=== PATIENT | female | born 1970 | race African-American/Black ===

== ENCOUNTER → 2018-03-03 | Outpatient (CLI) | payer OTHER ==
[2013-12-16 15:45] VITALS: BP 119/67
[~2018-03-03] MED LIST: HYDR12.58 PO; LISI10TA2 PO; OMEP40CA5 PO; OXYC10TA PO; URSO300C26 PO
--- NOTE | 2018-03-03 15:01 | KCIC ---
MRI Cervical Spine Without Contrast History: Cervical radiculopathy, neck pain, stiffness, crepitus, pain into the shoulders and into the arms for 2 years Technique: Multiplanar, multi sequential noncontrast MR imaging was performed of the cervical spine. Comparison: None Findings: There is somewhat decreased [id number] ratio as anterior neck coil could not be utilized, also mild motion. Cervical cord caliber is within normal limits without focal signal abnormality. Cervical vertebral body stature is overall preserved. AP alignment is within normal limits. There is no significant abnormality of the cervical medullary junction. There is no significant marrow edema. There is mild degenerative disc disease at C5-6, mild disc desiccation at other levels. C2-C3: Neural foramina and spinal canal are adequate. C3-C4: Neural foramina and spinal canal are adequate. There is facet degenerative change. There is negligible disc osteophyte complex and bulge. There is very mild left uncovertebral degenerative change. C4-C5: There is disc osteophyte complex and shallow posterior central and left paracentral protrusion, central canal borderline about 10 mm. There is bilateral facet degenerative change greater on the left. Neural foramina are adequate. C5-C6: There is disc osteophyte complex and bulge more eccentric to the left lateral recess. Central canal is narrowed to about 9 to 10 mm also with mild left lateral recess stenosis. There is left uncovertebral degenerative change. There is facet degenerative change greater on the left. There is moderate to severe narrowing of the left neural foramen. Right neural foramen is adequate. C6-C7: There is very shallow posterior protrusion greater in the right paracentral region. Central canal is borderline about 10 mm. Neural foramina are adequate. C7-T1: Spinal canal and the neural foramina are adequate. Impression: 1. There is mild spinal stenosis C5-6. There is moderate to severe narrowing of the left C5-6 neural foramen due to facet and uncovertebral degenerative change. There is mild degenerative disc disease C5-6. There is multilevel mild spondylosis. Electronically signed by: Chaitanya Dorsey MD (03/03/2018 2:57 PM) [facility]
== END | disposition home or self-care (01) ==
LOC: KCIC MRI 13:52
PROVIDERS: ATTEND Neuromusculoskeletal Medicine & OMM
DX: M48.02 Spinal stenosis, cervical region (principal); M50.322 Other cervical disc degeneration at C5-C6 level; M47.892 Other spondylosis, cervical region; M50.223 Other cervical disc displacement at C6-C7 level; M25.78 Osteophyte, vertebrae
CPT/HCPCS: 72141

== ENCOUNTER 2019-05-21 06:17 | Day surgery (SDC) | payer OTHER ==
[~2019-05-21] VITALS: Ht 170.2 cm; Wt 140.0 kg
[~2019-05-21 06:17] MED LIST changes: +AMLO5TAB10 PO; +ATOR40TA PO; +CELE200C PO; +DULA1.5P SQ; +GLIM4TAB PO; +METF500T PO; +OMEP40CA45 PO; -OMEP40CA5 PO; +ONDA8TAB9 PO; +TELM40TA PO; +TIMO10DR5 OD; +TIZA4TAB2 PO; +TRAM50TA PO
[2019-05-21] MEDS ORDERED: fentaNYL PF VIAL 100 MCG/2 ML VIAL IV PRN (07:00)
[2019-05-21] MEDS ORDERED: LIDOCAINE 1% PF 2 ML VIAL. ID PRN (07:00)
[2019-05-21] MEDS ORDERED: HYDROmorphone 2 MG/ML VIAL IV PRN (07:00)
[2019-05-21] MEDS ORDERED: ACETAMINOPHEN 500 MG TABLET PO ONE (07:00)
[2019-05-21] MEDS ORDERED: ONDANSETRON PF 4 MG/2 ML VIAL. IV PRN (07:00)
[2019-05-21] MEDS ORDERED: PROCHLORPERAZINE 10 MG/2 ML VIAL. IV PRN (07:00)
[2019-05-21] MEDS ORDERED: IV RINGERS,LACTATED 1000ML 1,000 ML IV SCH (07:00)
[2019-05-21] MEDS ORDERED: MORPHINE SULFATE 2 MG/ML VIAL. IV PRN (07:00)
[2019-05-21] MEDS: INSULIN LISPRO 100 UNIT/ML 3ML VIAL for OP,RR ONLY. SQ PRN ×2 (07:08→09:53)
[2019-05-21] MEDS ORDERED: INSULIN LISPRO 100 UNIT/ML 3ML VIAL for OP,RR ONLY. SQ PRN (07:15)
[2019-05-21] MEDS ORDERED: ROCURONIUM 50 MG/5 ML VIAL. ONE (07:28)
[2019-05-21] MEDS ORDERED: MIDAZOLAM HCL/PF 2 MG/2 ML VIAL. ONE (07:29)
[2019-05-21] MEDS ORDERED: fentaNYL PF VIAL 250 MCG/5 ML VIAL ONE (07:29)
--- NOTE | 2019-05-21 07:52 | PDOC1 ---
History and Physical Date of Admission Date of Admission DATE: 05/21/19 TIME: 07:46 Identification/Chief Complaint Chief Complaint Abdominal pain with a bulge Source Source: Patient History of Present Illness History of Present Illness 48-year-old female complains of a painful bulge in the midline of her abdomen just above her umbilicus. CT scan of her abdomen showed a supraumbilical midline hernia with incarcerated fat. Past Medical History Cardiovascular: HTN Pulmonary: No pertinent hx GI: GERD, Irritable bowel disease, Other (obesity) Heme/Onc: No pertinent hx Hepatobiliary: No pertinent hx Psych: No pertinent hx Rheumatologic: No pertinent hx Infectious disease: No pertinent hx ENT: No pertinent hx Renal/: No pertinent hx Endocrine: Diabetes Dermatology: No pertinent hx Past Surgical History Past Surgical History: Appendectomy, Cholecystectomy, Tonsillectomy, Hysterectomy Family History Family History: No Significant Social History Smoke: No ALCOHOL: none Drugs: None Current Medications Current Medications Current Medications Ondansetron HCl (Zofran) 4 mg PRN Q6HRS PRN IV NAUSEA/VOMITING; Start 05/21/19 at 07:00; Stop 05/22/19 at 06:59 Fentanyl Citrate (Fentanyl 2ml Vial) 25 mcg PRN Q5MIN PRN IV MILD PAIN 1-3; Start 05/21/19 at 07:00; Stop 05/22/19 at 06:59 Fentanyl Citrate (Fentanyl 2ml Vial) 50 mcg PRN Q5MIN PRN IV MODERATE TO SEVERE PAIN; Start 05/21/19 at 07:00; Stop 05/22/19 at 06:59 Morphine Sulfate (Morphine Sulfate) 1 mg PRN Q10MIN PRN IV SEVERE PAIN 7-10; Start 05/21/19 at 07:00; Stop 05/22/19 at 06:59 Ringer's Solution 1,000 ml @ 30 mls/hr Q24H IV Last administered on 05/21/19at 07:09; Start 05/21/19 at 07:00; Stop 05/21/19 at 18:59 Lidocaine HCl (Xylocaine-Mpf 1% 2ml Vial) 2 ml PRN 1X PRN ID PRIOR TO IV START; Start 05/21/19 at 07:00; Stop 05/22/19 at 06:59 Hydromorphone HCl (Dilaudid) 0.5 mg PRN Q10MIN PRN IV SEV PAIN, Second choice; Start 05/21/19 at 07:00; Stop 05/22/19 at 06:59 Prochlorperazine Edisylate (Compazine) 5 mg PACU PRN PRN IV NAUSEA, MRX1; Start 05/21/19 at 07:00; Stop 05/22/19 at 06:59 Bupivacaine HCl/ Epinephrine Bitart (Sensorcaine-Epi 0.25%-1:061582 Mpf) 30 ml 1X ONCE INJ ; Start 05/21/19 at 08:00; Stop 05/21/19 at 08:01 Acetaminophen (Tylenol) 1,000 mg 1X PREOP PO ; Start 05/21/19 at 08:00 Cefazolin Sodium 3 gm/Dextrose 100 ml @ 200 mls/hr 1X PREOP PRN IV PRIOR TO PROCEDURE; Start 05/21/19 at 08:00; Stop 05/21/19 at 08:01 Acetaminophen (Tylenol) 1,000 mg 1X ONCE PO Last administered on 05/21/19at 07:09; Start 05/21/19 at 07:00; Stop 05/21/19 at 07:01; Status DC Insulin Human Lispro (HumaLOG VIAL for OP,RR ONLY) 0-10 units PRN Q1HR PRN SQ PER PROTOCOL Last administered on 05/21/19at 07:08; Start 05/21/19 at 07:00; Stop 05/22/19 at 06:59 Insulin Human Lispro (HumaLOG VIAL for OP,RR ONLY) 0-10 units PRN Q1HR PRN SQ PER PROTOCOL; Start 05/21/19 at 07:15; Stop 05/22/19 at 07:14 Rocuronium [place] (Zemuron) 50 mg STK-MED ONCE .ROUTE ; Start 05/21/19 at 07:28; Stop 05/21/19 at 07:29; Status DC Midazolam HCl (Versed) 2 mg STK-MED ONCE .ROUTE ; Start 05/21/19 at 07:29; Stop 05/21/19 at 07:29; Status DC Fentanyl Citrate (Fentanyl 5ml Vial) 250 mcg STK-MED ONCE .ROUTE ; Start 05/21/19 at 07:29; Stop 05/21/19 at 07:29; Status DC Active Scripts Active Reported Zofran (Ondansetron Hcl) 8 Mg Tablet 8 Mg PO BID PRN Tramadol Hcl 50 Mg Tablet 50 Mg PO Q6HRS PRN Tizanidine Hcl 4 Mg Tablet 6 Mg PO TID PRN Micardis (Telmisartan) 40 Mg Tablet 40 Mg PO DAILY Glucophage (Metformin Hcl) 500 Mg Tablet 500 Mg PO BIDWMEALS Trulicity (Dulaglutide) 1.5 Mg/0.5 Ml Pen.injctr 1.5 Mg SQ WEEKLY Amlodipine Besylate 5 Mg Tablet 5 Mg PO DAILY Lipitor (Atorvastatin Calcium) 40 Mg Tablet 40 Mg PO HS Celebrex (Celecoxib) 200 Mg Capsule 200 Mg PO BID 30 Days Amaryl (Glimepiride) 4 Mg Tablet 4 Mg PO DAILY Timoptic 0.5% (Timolol Maleate) 10 Ml Drops 1 Drop OD BID 30 Days Omeprazole 40 Mg Capsule.dr 40 Mg PO DAILY Oxycodone Hcl Immed.release (Oxycodone Hcl) 10 Mg Tablet 10 Mg PO PRN Allergies Allergies: Coded Allergies: No Known Drug Allergies (Unverified , 05/21/19) ROS Gastrointestinal: Yes Abdominal Pain Physical Exam General: Alert, Oriented X3, Cooperative, No acute distress, Other HEENT: Atraumatic, PERRLA, EOMI Lungs: Clear to auscultation, Normal air movement Heart: RRR, no murmurs Abdomen: Normal bowel sounds, Soft, Other (and a bulge in the midline just above the umbilicus morbid obesity) Rectal Exam: not examined Extremities: No edema Skin: No significant lesion Neuro: Normal speech Vitals Vitals Vital Signs Date Time Temp Pulse Resp B/P (MAP) Pulse Ox O2 Delivery O2 Flow Rate FiO2 05/21/19 06:56 97.4 71 18 158/99 98 Room Air 97.4 Labs Labs Laboratory Tests Test 05/21/19 06:59 Glucose (Fingerstick) 136 mg/dL (70-99) Laboratory Tests Test 05/21/19 06:59 Glucose (Fingerstick) 136 mg/dL (70-99) Images Images As in history of present illness VTE Prophylaxis Ordered VTE Prophylaxis Devices: Yes VTE Pharmacological Prophylaxi: Contraindicated Assessment/Plan Assessment/Plan Supraumbilical hernia incarcerated omentum plan laparoscopic repair DOMINIC DIAZ MD May 21, 2019 07:51
[2019-05-21] MEDS ORDERED: ceFAZolin SODIUM 3 GM in IV DEXTROSE 5% 100ML 100 ML IV PRN (08:00)
[2019-05-21] MEDS ORDERED: ACETAMINOPHEN 500 MG TABLET PO SCH (08:00)
[2019-05-21] MEDS ORDERED: BUPIVACAINE-EPI 0.25%-1:200000 MPF 30 ML VIAL. INJ ONE (08:00)
[2019-05-21] MEDS ORDERED: ONDANSETRON PF 4 MG/2 ML VIAL. ONE (08:48)
[2019-05-21] MEDS ORDERED: ePHEDrine PF IN SALINE 50 MG/10 ML SYRINGE. IV ONE (08:48)
[2019-05-21] MEDS ORDERED: DEXAMETHASONE SOD PHOS 20 MG/5 ML VIAL. ONE (08:48)
[2019-05-21] MEDS ORDERED: PROPOFOL 20 ML IV ONE (08:48)
[2019-05-21] MEDS ORDERED: LIDOCAINE 2% PF 5 ML VIAL. ONE (08:48)
[2019-05-21] MEDS ORDERED: NEOSTIGMINE METHYLSULFATE 5 MG/5 ML SYRINGE. ONE (09:10)
[2019-05-21] MEDS ORDERED: GLYCOPYRROLATE 1 MG/5 ML VIAL. ONE (09:10)
--- NOTE | 2019-05-21 09:19 | PDOC4 ---
Operative Note Operative Note Date: 05/21/2019 Preoperative diagnosis: Incisional hernia Postoperative diagnosis: Same Procedure: Robotic-assisted laparoscopic incisional hernia repair with mesh Surgeon: Eliud Specimen: None Dictation: Patient is a 48-year-old female is had multiple laparoscopic surgeries developed a hernia just above the umbilicus probably likely secondary to previous incisions. The procedure of incisional hernia repair with mesh was explained to the patient in detail risks benefits were also discussed including bleeding infection injury to intra-abdominal contents possibly necessitating further or open operations alternatives to this procedure also discussed with patient is seemed to understand and gave both verbal and written consent to have the procedure performed. Patient was taken to the operating room placed in supine position general anesthesia was initiated once patient was sleep and intubated her abdomen was prepped and draped usual sterile fashion using ChloraPrep area and the left upper quadrant was injected quarter percent Marcaine with epinephrine incision made 11 blade scalpel. A 5 mm Visiport was placed under direct visualization and the abdomen and pneumoperitoneum was achieved once this complete 5mm camera was placed within the abdomen and was inspected was noted the hernia was not incarcerated. A da Nydia 8 mm port was placed in the left mid abdomen a 8mm da Nydia port was placed in the left lower abdomen and one in the left upper abdomen. The da Nydia robot was then brought in and docked all port sites and surgeon went to the robotic console using grasper and Endo Maggi scissors the tissue around the fascial defect was cleared away allowing for nonabsorbable sutures were used to close the fascial defect. A ventral light ST mesh was then placed over the hernia defect this was sewn in place with a running 20V LOC absorbable suture. Once this complete all ports removed the pneumoperitoneum was reduced all port sites were closed for septic and a Monocryl Mastisol Steri-Strips island dressings were applied. Patient was awakened expend an operating room taken to recovery in stable condition all sponge instrument needle counts listed as correct estimated blood loss 5 mL DOMINIC DIAZ MD May 21, 2019 09:19
--- NOTE | 2019-05-21 09:22 | DISCH ---
DISCHARGE INSTRUCTIONS Condition on Discharge Condition on Discharge: Stable Activity After Discharge Activity Instructions for Disc: Avoid exertion Other activity instructions: no lifting more than 20 pounds for 2 weeks Diet after Discharge Diet after Discharge: Regular Wound Incision Care Other wound/incision instructi: May shower in 24 hours Contacting the [facility] after DC Call your doctor for: If your condition worsens Follow-Up Follow up with: Dr. Diaz in 2 weeks DOMINIC DIAZ MD May 21, 2019 09:22
[2019-05-21] MEDS ORDERED: OXYC-325 PO (09:36)
[2019-05-21] MEDS ORDERED: oxyCODONE/APAP 5/325 1 TAB TABLET PO ONE ×2 (10:00)
[2019-05-21] MEDS: fentaNYL PF VIAL 100 MCG/2 ML VIAL IV PRN ×2 (10:08→10:23)
[2019-05-21 10:29] VITALS: BP 142/90
== END 2019-05-21 11:00 | disposition home or self-care (01) ==
LOC: SURG 06:17
PROVIDERS: ATTEND Surgery
DX: K43.2 Incisional hernia without obstruction or gangrene (principal); I10 Essential (primary) hypertension; K21.9 Gastro-esophageal reflux disease without esophagitis; E11.9 Type 2 diabetes mellitus without complications; Z79.811 Long term (current) use of aromatase inhibitors; Z90.49 Acquired absence of other specified parts of digestive tract; Z98.890 Other specified postprocedural states; Z90.710 Acquired absence of both cervix and uterus; Z79.84 Long term (current) use of oral hypoglycemic drugs
CPT/HCPCS: 49654; 82962; A7015; C1781; J0171; J1100; J2001; J2250; J2405; J2704; J2710; J3010; J3490; S2900

== ENCOUNTER 2021-01-29 08:08 | Outpatient (CLI) | payer OTHER ==
[~2021-01-29] VITALS: Ht 170.2 cm; Wt 135.5 kg
[2021-01-29] VITALS (11 sets, daily range): BP systolic 112–147; BP diastolic 70–91
[~2021-01-29 08:08] MED LIST changes: +AMLO-186 PO; -AMLO5TAB10 PO; +HEPARIN for ARTERIAL LINE 1,500 ML ONE; +IODIXANOL 320 MG/ML 100 ML VIAL. ONE; +LIDOCAINE 1% PF 2 ML VIAL. ONE; +LISI10TA16 PO; -LISI10TA2 PO; -OMEP40CA45 PO; +OMEP40CA7 PO; +OXYC-325 PO
[2021-01-29] MEDS ORDERED: CRESTOR40 MG PO (08:20)
[2021-01-29 08:55] LABS: HEMATOCRIT 40.4 % (36.0-47.0); HEMOGLOBIN 13.6 g/dL (12.0-15.5); RED BLOOD COUNT 4.78 x10^6/uL (3.50-5.40); RED CELL DISTRIBUTION WIDTH 14.5 % (11.5-14.5); WHITE BLOOD COUNT 6.1 x10^3/uL (4.0-11.0)
--- NOTE | 2021-01-29 09:03 | PDOC ---
MODERATE SEDATION ASSESSMENT RISKS/ALTERNATIVES Risks/Alternatives Risks and alternatives of this type of sedation and procedure discussed with: RISK/ALTERNATIVES: Patient H & P ON CHART H & P H & P on chart and reviewed for co-morbid conditions and appropriate labs. H&P ON CHART: Yes STATUS PREG STATUS ASSESSED: N/A MEDS/ALLERGIES REVIEWED Meds/Allergies Reviewed Medications and Allergies including time and route of recently administered narcotics and sedatives. MEDS/ALLERGIES REVIEWED: Yes ASA RATING ASA RATING: II AIRWAY ASSESSMENT Airway Assessment Airway patency, oral function limitations, presence of caps, crowns, dentures, partials, and ability to extend neck assessed. AIRWAY ASSESSMENT: Yes MALLAMPATI SCORE MALLAMPATI SCORE: II PRE-SEDATION ASSESSMENT PRE-SEDATION ASSESSMENT: Yes KAI LEMA MD Jan 29, 2021 09:03
[2021-01-29 09:12] LABS: CALCIUM 8.8 mg/dL (8.5-10.1); CREATININE 0.7 mg/dL (0.6-1.0); GFR 106.7; POTASSIUM 3.7 mmol/L (3.5-5.1)
--- NOTE | 2021-01-29 09:18 | PDOC1 ---
History and Physical Visit Information Date of Admission: 01/29/21 History of Present Illness History of Present Illness Pleasant 50 y.o woman here for evaluation of an abnormal stress test performed for preoperative evaluation for gastric bypass surgery.She has had atypical chest pain. She also has significant risk factors such as HTN, DM2 and dyslipidemia. We discussed with r/b/a to cath and she is willing to proceed. Cardiac Risk Factors Comments As noted above. Past Medical History Cardiovascular: HTN Endocrine: Diabetes Current Medications Current Medications Current Medications Heparin Sodium/ Sodium Chloride 1,500 ml @ As Directed STK-MED ONCE .ROUTE ; Start 01/29/21 at 07:37; Stop 01/29/21 at 07:37; Status DC Iodixanol (Visipaque 320) 100 ml STK-MED ONCE .ROUTE ; Start 01/29/21 at 07:37; Stop 01/29/21 at 07:37; Status DC Lidocaine HCl (Xylocaine-Mpf 1% 2ml Vial) 2 ml STK-MED ONCE .ROUTE ; Start 01/29/21 at 07:37; Stop 01/29/21 at 07:37; Status DC Allergies Allergies Allergies Coded Allergies Type Severity Reaction Last Updated Verified No Known Drug Allergies 05/21/19 No Social History Comments No alcohol, tob or illicit drug use. ROS Review of System Negative for 03/29 systems reviewed unless noted above in HPI. Physical Exam General: Alert, Oriented X3 HEENT: Atraumatic Lungs: Clear to auscultation Heart: Regular rate CHEST: Clear to auscultation Abdomen: Normal bowel sounds Extremities: No clubbing Skin: No rashes Neuro: Normal gait Vitals VITALS Vital Signs Date Time Temp Pulse Resp B/P (MAP) Pulse Ox O2 Delivery O2 Flow Rate FiO2 01/29/21 08:53 98.0 79 12 147/86 (106) 97 Room Air 98.0 Labs Labs Laboratory Tests Test 01/29/21 08:30 White Blood Count 6.1 x10^3/uL (4.0-11.0) Red Blood Count 4.78 x10^6/uL (3.50-5.40) Hemoglobin 13.6 g/dL (12.0-15.5) Hematocrit 40.4 % (36.0-47.0) Mean Corpuscular Volume 84 fL (79-100) Mean Corpuscular Hemoglobin 29 pg (25-35) Mean Corpuscular Hemoglobin Concent 34 g/dL (31-37) Red Cell Distribution Width 14.5 % (11.5-14.5) Platelet Count 219 x10^3/uL (140-400) Laboratory Tests Test 01/29/21 08:30 White Blood Count 6.1 x10^3/uL (4.0-11.0) Red Blood Count 4.78 x10^6/uL (3.50-5.40) Hemoglobin 13.6 g/dL (12.0-15.5) Hematocrit 40.4 % (36.0-47.0) Mean Corpuscular Volume 84 fL (79-100) Mean Corpuscular Hemoglobin 29 pg (25-35) Mean Corpuscular Hemoglobin Concent 34 g/dL (31-37) Red Cell Distribution Width 14.5 % (11.5-14.5) Platelet Count 219 x10^3/uL (140-400) ECG EKG: NSR VTE Prophylaxis Ordered VTE Prophylaxis Devices: No VTE Pharmacological Prophylaxi: No Assessment/Plan Assessment/Plan 1. Abnormal stress test with atypical chest pain in the setting of preoperative evaluation -Plan for c, coronary angiography. R/B/A discussed with patient and she is agreeable to proceed. Justicifation of Admission Dx: Justifications for Admission: Justification of Admission Dx: N/A KAI LEMA MD Jan 29, 2021 09:18
[2021-01-29] MEDS ORDERED: VERAPAMIL 5 MG/2 ML VIAL. ONE (09:21)
[2021-01-29] MEDS ORDERED: fentaNYL PF VIAL 100 MCG/2 ML VIAL ONE (09:21)
[2021-01-29] MEDS ORDERED: MIDAZOLAM HCL/PF 2 MG/2 ML VIAL. ONE (09:21)
[2021-01-29] MEDS ORDERED: HEPARIN for IV BOLUS 10,000 UNIT/10 ML VIAL. ONE (09:21)
[2021-01-29] MEDS ORDERED: NITROGLYCERIN 200 MCG/2 ML SYRINGE FOR CATH/VASC LAB. ONE (09:21)
[2021-01-29] MEDS ORDERED: MIDAZOLAM HCL/PF 2 MG/2 ML VIAL. IV ONE (10:00)
[2021-01-29] MEDS ORDERED: LIDOCAINE 1% PF 2 ML VIAL. INJ ONE (10:00)
[2021-01-29] MEDS ORDERED: IODIXANOL 320 MG/ML 100 ML VIAL. IART ONE (10:00)
[2021-01-29] MEDS ORDERED: HEPARIN for IV BOLUS 10,000 UNIT/10 ML VIAL. IART ONE (10:00)
[2021-01-29] MEDS ORDERED: fentaNYL PF VIAL 100 MCG/2 ML VIAL IV ONE (10:00)
[2021-01-29] MEDS ORDERED: NITROGLYCERIN 200 MCG/2 ML SYRINGE FOR CATH/VASC LAB. IART ONE (10:00)
[2021-01-29] MEDS ORDERED: VERAPAMIL 5 MG/2 ML VIAL. IART ONE (10:00)
--- NOTE | 2021-01-29 12:32 | NUR ---
Discharge Note: [facility] Discharge instructions and discharge home medications reviewed with Patient and a copy given. All questions have been answered and understanding verbalized. The following instructions and handouts were given: radial site care and adult moderate sedation Discontinued lines and drains: Peripheral IV intact. Patient discharged to Home or Self Care withSpousevia Wheelchair
--- NOTE | 2021-01-29 12:36 | CARD ---
MR#: [id number] Date of Study: 01/29/2021 Ordering Physician: KAI COLINDRES, Referring Physician: KAI COLINDRES, Tech: RT Ana Rosa(R)() APPROVED REPORT Technologist: RT Ana Rosa(R)() Nurse: Teri Camacho RN Procedure(s) performed: MODERATE SEDATION TIME: 24 MINUTES FLUORO TIME: 3.1 MINUTES DOSE: 73.8 GYCM2 CONTRAST: 53CC VISI LHC, Coronary angiography [facility] Clinical Frailty Scale [facility] Clinical Frailty Scale: Managing Well Heart Failure Heart Failure: No CASE TECHNIQUE IV conscious sedation was used throughout procedure with appropriate monitoring and was performed in the presence of a registered nurse who was an independent trained observer other than the physician p erforming the procedure. During this case, Fluoroscopy and low osmolar contrast were used for imaging . Specimen(s) Removed: N/A Estimated Blood loss: 15 cc's. PROCEDURE NARRATIVE Clinical information: 50-year-old woman presents to the Construction Project [employer] in the setting of an abnormal stress test prior to gastric bypass surgery. Informed consent: Written informed consent was obtained from the patient after adequate discussion of the risks and marimar efits of the procedure. Procedure details: ACCESS: The right wrist was prepped and draped in usual sterile fashion. Under 1% lidocaine local anesthesia a 6 Barb[place] Terumo sheath was placed in the right radial artery via the Seldinger technique. DIAGNOSTIC ANGIOGRAPHY: Right and left coronary arteries were engaged with a 6 Barbadian TIG catheter. Diagnostic angiography i n multiple views were obtained. LVEDP was measured with the 6 Barb[place] TIG catheter. A pullback was p erformed. All catheters were exchanged over J-tip guidewire. FINDINGS: ======= Aorta: 110/80 LVEDP: 15 mmHg Left ventriculogram: Deferred due to known normal ejection fraction by stress testing. Coronary angiography: LM: Large caliber vessel with normal angiographic appearance LAD: Large caliber vessel with mild luminal irregularities D1: Small caliber vessel with normal angiographic appearance LCX: Moderate caliber non-dominant vessel with mild luminal irregularities OM1: Moderate caliber vessel with normal angiographic appearance RCA: Large caliber dominant vessel with normal angiographic appearance RPDA: Moderate caliber vessel with normal angiographic appearance CLOSURE: At case completion the right radial sheath was removed and a Terumo radial band was applied with 11 m L of air. Hemostasis was achieved. COMPLICATIONS: No acute complications noted Conclusion 1. Normal left-sided filling pressures 2. No significant coronary artery disease Recommendations Aggressive Medical Therapy Signed by : Kai Colindres, Electronically Approved : 01/29/2021 12:35:59
== END 2021-01-29 12:34 | disposition home or self-care (01) ==
LOC: CCL 08:08
PROVIDERS: ATTEND Internal Medicine Cardiovascular Disease
DX: R94.39 Abnormal result of other cardiovascular function study (principal); R07.89 Other chest pain; I10 Essential (primary) hypertension; E11.9 Type 2 diabetes mellitus without complications; E78.5 Hyperlipidemia, unspecified; F41.9 Anxiety disorder, unspecified; F32.9 Major depressive disorder, single episode, unspecified; M19.90 Unspecified osteoarthritis, unspecified site; K21.9 Gastro-esophageal reflux disease without esophagitis; Z90.49 Acquired absence of other specified parts of digestive tract; Z90.710 Acquired absence of both cervix and uterus; Z98.51 Tubal ligation status; Z95.0 Presence of cardiac pacemaker; Z90.721 Acquired absence of ovaries, unilateral; Z98.890 Other specified postprocedural states
CPT/HCPCS: 36415; 80048; 85027; 93458; 99152; 99153; C1769; C1894; J1644; J2250; J3010; J3490; Q9967